=== PATIENT | male | born 1955 | race American Indian/Alaskan Native ===

== ENCOUNTER 2021-11-06 21:32 | Emergency (ER) | payer OTHER ==
--- NOTE | 2021-11-07 01:21 | Emergency Department Report ---
ED Extremity Problem HPI - General Chief complaint: Extremity Injury, Lower Stated complaint: BILATERAL LEG PAIN Source: EMS Mode of arrival: Stretcher Limitations: No Limitations - History of Present Illness Initial comments: Patient is a 67-year-old -British male with history of [id number] diabetes, head injury status post head surgery, chronic back pain, diabetic neuropathy and hypertension who presents to the ED with acute distribution of his chronic bilateral foot pain with tingling sensation. Patient states that the symptoms are intermittent and occasionally he experiences bilateral foot swelling. Patient admits to not being able to walk most of the time because of fear of falling. Patient however denies chest pain or shortness of breath, abdominal pain, dizziness, syncope, nausea and vomiting, dysuria, urinary frequency and urgency and hematuria, fever and chills or traumatic injury. MD Complaint: extremity pain (Bilateral feet tingling sensation), joint paint -: Gradual, week(s) (2) Location: bilateral lower extremity (Bilateral feet) History of Same: Yes -: Yes arthralgia Radiation: distal Severity scale (0 -10): 2 Quality: dull Consistency: intermittent Improves with: nothing Worsens with: nothing Associated Symptoms: denies other symptoms. denies: chest pain, shortness of breath, fever, myalgias, arthralgias, rash, other ED Review of Systems ROS: Stated complaint: BILATERAL LEG PAIN Other details as noted in HPI Constitutional: denies: chills, fever Eyes: denies: eye pain, eye discharge, vision change ENT: denies: ear pain, throat pain Respiratory: denies: cough, shortness of breath, wheezing Cardiovascular: denies: chest pain, palpitations Endocrine: no symptoms reported Gastrointestinal: denies: abdominal pain, nausea, diarrhea Genitourinary: denies: urgency, dysuria Musculoskeletal: arthralgia (Bilateral feet tingling sensation). denies: back pain, joint swelling Skin: denies: rash, lesions Neurological: denies: headache, weakness, paresthesias Psychiatric: denies: anxiety, depression Hematological/Lymphatic: denies: easy bleeding, easy bruising ED Past Medical Hx - Past Medical History Previous Medical History?: Yes Hx Hypertension: Yes Hx Diabetes: Yes Additional medical history: Chronic back pain; diabetic neuropathy - Surgical History Past Surgical History?: Yes Additional Surgical History: brain surgery x 2 - Social History Smoking Status: Unknown if ever smoked Substance Use Type: Alcohol ED Physical Exam - General Limitations: No Limitations General appearance: alert, in no apparent distress - Head Head exam: Present: atraumatic, normocephalic, normal inspection - Eye Eye exam: Present: normal appearance, PERRL, EOMI Pupils: Present: normal accommodation - ENT ENT exam: Present: normal exam, normal orophraynx, mucous membranes moist, TM's normal bilaterally, normal external ear exam - Neck Neck exam: Present: normal inspection - Respiratory Respiratory exam: Present: normal lung sounds bilaterally. Absent: respiratory distress, wheezes, rales, rhonchi, chest wall tenderness, accessory muscle use, decreased breath sounds, prolonged expiratory - Cardiovascular Cardiovascular Exam: Present: regular rate, normal rhythm, normal heart sounds. Absent: systolic murmur, diastolic murmur, rubs, gallop - GI/Abdominal GI/Abdominal exam: Present: soft, normal bowel sounds. Absent: tenderness, guarding, rebound, hyperactive bowel sounds, hypoactive bowel sounds, organomegaly - Extremities Exam Extremities exam: Present: normal inspection, full ROM, normal capillary refill. Absent: tenderness - Back Exam Back exam: Present: normal inspection, full ROM. Absent: tenderness, CVA tenderness (R), CVA tenderness (L), muscle spasm - Neurological Exam Neurological exam: Present: alert, oriented X3, CN II-XII intact, normal gait, reflexes normal - Psychiatric Psychiatric exam: Present: normal affect, normal mood - Skin Skin exam: Present: warm, dry, intact, normal color. Absent: rash ED Course Vital Signs 11/06/21 21:33 Temperature 98.2 F Pulse Rate 86 Respiratory 18 Rate Blood Pressure 150/82 O2 Sat by Pulse 98 Oximetry ED Medical Decision Making - Medical Decision Making This is a 67-year-old -British male with history of [id number] diabetes, head injury status post head surgery, chronic back pain, diabetic neuropathy and hypertension who presents to the ED with acute distribution of his chronic bilateral foot pain with tingling sensation. Patient states that the symptoms are intermittent and occasionally he experiences bilateral foot swelling. Patient admits to not being able to walk most of the time because of fear of falling. In the ED, patient is alert and oriented x3 and is not in any distress. Patient is hemodynamically stable. Based on the history and physical exam findings, the patient symptoms are likely due to chronic diabetic neuropathy. Patient is currently on gabapentin for his chronic diabetic neuropathy. Patient was therefore advised to continue taking the gabapentin previously prescribed by his primary care physician and to follow-up with his primary care physician in 7 to 10 days for reevaluation or return to the ED immediately if symptoms get worse. - Differential Diagnosis Diabetic neuropathy; muscle strain; muscle spasm; Critical care attestation.: If time is entered above; I have spent that time in minutes in the direct care of this critically ill patient, excluding procedure time. ED Disposition Clinical Impression: Diabetic neuropathy, type II diabetes mellitus Qualifiers: Diabetes mellitus mcc insulin use: without mcc use Qualified Code(s): E11.40 - Type 2 diabetes mellitus with diabetic neuropathy, unspecified Disposition: HOME / SELF CARE / HOMELESS Is pt being admited?: No Does the pt Need Aspirin: No Condition: Stable Instructions: Diabetes Mellitus Type 2 in Adults (ED), Type 2 Diabetes Mellitus, Self Care, Adult, [id number], Neuropathic Pain, Peripheral Neuropathy Additional Instructions: Take your regular medications as previously advised, drink plenty of fluids, do light exercise as at least 3 times a week, follow-up with your primary care physician in 7 to 10 days for reevaluation. Return to the ED immediately if your symptoms get worse. Referrals: LAUREL TEE MD [Staff Physician] - 7-10 days Time of Disposition: 01:19 Print Language: TAJIK
[2021-11-07 02:38] VITALS: BP 152/73
== END 2021-11-07 02:33 | disposition home or self-care (01) ==
LOC: ED 21:32
DX: E11.40 Type 2 diabetes mellitus with diabetic neuropathy, unspecified (principal); M79.671 Pain in right foot; M79.672 Pain in left foot; I10 Essential (primary) hypertension; G89.29 Other chronic pain; Z72.89 Other problems related to lifestyle; Z79.899 Other long term (current) drug therapy
CPT/HCPCS: 99283